=== PATIENT | female | born 1990 | race Caucasian/White ===

== ENCOUNTER 2023-05-30 08:59 | Emergency (ER) | payer BC, SELFPAY ==
[2023-05-30 09:04] VITALS: BP 109/70; PULSE 104; RESP 17; TEMP 36.6; O2SAT 98; BMI 22.3
--- NOTE | 2023-05-30 09:17 | ED.GENADULT ---
HPI - General Adult General Chief complaint: Wound/Laceration Stated complaint: Forehead lac Time Seen by Provider: 05/30/23 09:15 Source: patient Mode of arrival: ambulatory Limitations: no limitations History of Present Illness HPI narrative: Patient is a 32-year-old female presenting to the emergency department with complaint of laceration to left eyebrow after a slip and fall this morning. Patient states that she slipped on ice this morning and hit her eyebrow on ice at the time of the fall. She denies loss of consciousness. She has not anticoagulated. She denies current headache. Denies blurred vision, double vision or other visual changes. Does report mild nausea but denies vomiting. Denies any neck or back pain. Denies any other injuries. States that her Tdap is up-to-date, last received in 2020. complaint: Laceration Onset (ago): hour(s) Location: face Radiation: non-radiation Severity: mild Quality: burning Pain Consistency: constant Associated symptoms: denies other symptoms Treatments prior to arrival: none Related Data Allergies Allergy/AdvReac Type Severity Reaction Status Date / Time No Known Allergies Allergy Verified 05/30/23 09:03 Review of Systems Review of Systems: As per HPI. Yes all other systems are reviewed and are negative Constitutional: Constitutional: Reports as per HPI PMF Past Medical History Onset Date is defined in the Problem List Problems that require an onset date and time if occurred within 24 hrs of arrival to the ED Aortic Dissection and Rupture; Neurologic impairment; Cardiopulmonary Arrest; Endotracheal Intubation; Insertion or Replacement of Mechanical Circulatory Assist Device Medical History (Updated 05/30/23 @ 10:54 by Magaly Aguilar NP) No known health problems Social History Social History Smoked in Last 30 Days: No Use of substances other than those prescribed or required for medical reasons: No Advance Directives: No Physical Exam ED Vital Signs: Vital Signs - 24 hr 05/30/23 09:04 Temperature 98 F Pulse Rate 104 H Respiratory Rate 17 Blood Pressure 109/70 Pulse Oximetry 98 Oxygen Delivery Method Room Air BMI result Body Mass Index 22.3 Vital signs have been reviewed and appear to be correct. Blood pressure normal. Heart rate mildly tachycardic. Respiratory rate normal. Temperature normal. Oxygen saturation normal. Const General: cooperative, healthy appearing and no acute distress Orientation/consciousness: oriented to person, oriented to place, oriented to time and patient oriented x3 Limitations: no limitations HENMT Head: Yes normocephalic Head images: 1. laceration Ears: external ears normal General nose exam: Normal external nose present Face and sinus: Yes face symmetric Mouth: oropharynx normal and moist mucous membranes Throat: Yes uvula midline Eyes Eyelids: Yes eyelids normal Conjunctivae: conjunctivae normal Sclerae: sclerae normal Corneas: corneas normal Pupils: Equal, round and reactive pupils present EOM: EOMs intact bilaterally Neck Neck: Yes normal visual inspection and Yes supple Resp Effort & Inspection: normal respiratory effort and able to speak in complete sentences Auscultation: clear to auscultation bilaterally Cardio Rate: regular rate Rhythm: regular rhythm Heart sounds: S1 normal heart sound present and S2 normal heart sound present GI Palpation (GI): Soft to palpation and nontender Auscultation: normoactive bowel sounds General: Yes no CVA tenderness Back/Spine/Pelvis Back: no CVA tenderness Skin General skin exam: elasticity normal and turgor normal Neuro General: oriented to person, oriented to place, oriented to time, patient oriented x3, moves all extremities, no focal motor deficits and CN's II-XI intact bilaterally Cranial nerves: Yes Equal, round and reactive pupils present Cognition (Neuro): normal cognition Extrem General: Yes full ROM, Yes no pedal edema and Yes no calf tenderness Psych Mental Status: mental status grossly normal Affect: normal affect Thought process: Normal thought process present Medications Administered Discontinued Medications Generic Name Dose Route Start Last Admin Trade Name Marlonq PRN Reason Stop Dose Admin Lidocaine HCl 5 ml 05/30/23 09:25 05/30/23 10:02 Lidocaine Hcl 1 % Mpf 5 Ml Vial INFILTRATI 05/30/23 09:26 5 ml ONCE ONE Administration Ondansetron HCl 4 mg 05/30/23 09:54 05/30/23 10:01 Ondansetron Odt 4 Mg Tab.Rapdis TRANSLINGU 05/30/23 09:55 4 mg ONCE ONE Administration Procedures Laceration Laceration 1: Site: face Side (If applicable): left Size (cm): 3 Description: linear Depth: simple, single layer Local Anesthetic: lidocaine 1% Amount of anesthesia used (mL): 4 Pre-repair: wound explored, irrigated extensively and deep structures intact Skin layer closed with: other (prolene) Size (cm): 6-0 Number of sutures: 11 Technique: simple, interrupted Medical Decision Making Medical Decision Making MDM Narrative: Patient is a 32-year-old female presenting to the emergency department with complaint of laceration to left eyebrow after a slip and fall this morning. On exam patient is awake, A+Ox3, VS WNL, afebrile, normal neurological exam without focal deficits, physical exam findings as above. Given reported symptoms and physical exam findings, initial differential includes laceration, abrasion. CT head not indicated based on [place] CT head rule. Laceration repaired as per procedure note. Patient tolerated procedure well. Discussed suture care with patient at bedside as well as return precautions. Instructed patient to follow-up with PCP. Patient verbalized understanding of and agreement with plan. Differential Diagnosis Differential Diagnoses: The differential diagnosis associated with the presentation includes As Per MDM. External Record Review External record reviewed: Inpatient record, Office record and Outpatient record Discharge Plan Discharge Clinical Impression: Eyebrow laceration Qualifiers: Encounter type: initial encounter Laterality: left Qualified Code(s): S01.112A - Laceration without foreign body of left eyelid and periocular area, initial encounter Patient Disposition: Home, Self-Care Instructions: Facial Laceration (ED) Additional Instructions: You have been evaluated in the emergency department today for a laceration to your eyebrow. Your laceration was repaired in the emergency department with sutures. Please keep the area surrounding the laceration clean and dry and keep dressing in place for the next 24 hours. After that please change the dressing and assess the wound daily. Keep the area out of direct sunlight for the next 6 months to help prevent scarring. Once the area has fully healed and sutures have been removed, apply sunscreen to the area when outdoors. You should have the sutures removed in 5 days. If you develop fever, redness, swelling at the site of your laceration, or thick yellow drainage please come back to the ER for a wound check. Stand Alone Forms: Work/School Release
[2023-05-30] MEDS: Ondansetron ODT 4 MG TAB.RAPDIS TRANSLINGU (10:01)
[2023-05-30] MEDS: Lidocaine HCl 1 % MPF 5 ML VIAL INFILTRATI (10:02)
[2023-05-30 11:00] VITALS: BP 105/61; PULSE 73; RESP 16; TEMP 36.8; O2SAT 97
== END 2023-05-30 11:11 | disposition home or self-care (01) ==
PROVIDERS: Emergency Provider Emergency Medicine
DX: S01.112A Laceration without foreign body of left eyelid and periocular area, initial encounter (principal); W00.0XXA Fall on same level due to ice and snow, initial encounter; Y93.01 Activity, walking, marching and hiking; Y92.480 Sidewalk as the place of occurrence of the external cause; Y99.9 Unspecified external cause status
CPT/HCPCS: 12013; 99284

== ENCOUNTER 2023-06-04 08:21 | Emergency (ER) | payer BC, SELFPAY ==
--- NOTE | 2023-06-04 08:22 | ED_ITS ---
HPI - General Adult General Chief complaint: Wound/Laceration Stated complaint: stiches removal Time Seen by Provider: 06/04/23 08:22 Source: patient Mode of arrival: ambulatory Limitations: no limitations History of Present Illness HPI narrative: 32-year-old female presents for suture removal, she has a laceration that is healing to her left eyebrow she had sutures placed on 05/30/2023 was told to come in today to get them removed. No complaints. Related Data Allergies Allergy/AdvReac Type Severity Reaction Status Date / Time No Known Allergies Allergy Verified 05/30/23 09:03 Review of Systems Review of Systems: Yes all other systems are reviewed and are negative [facility] Past Medical History Attestation statement: The following information was validated with the patient. Source: old records reviewed and nursing notes reviewed Medical History (Updated 06/04/23 @ 08:23 by ROSCOE Chavez) No known health problems Social History Social History Advance Directives: No Advance Directives Information Provided: No Physical Exam ED Vital Signs: Vital Signs - 24 hr 06/04/23 08:28 Temperature 98 F Pulse Rate 84 Respiratory Rate 16 Blood Pressure 104/52 L Pulse Oximetry 99 Oxygen Delivery Method Room Air BMI result Body Mass Index 22.3 Appearance: Alert.? Oriented X3.? No acute distress.? Head: Normocephalic, atraumatic, no step-offs or deformities Eyes: Pupils equal, round and reactive to light.? Extraocular movements intact and pain-free. + nicely healing left eyebrow laceration with overlying suture X 11 Neck: Normal inspection.? Neck supple.? CVS Pulses normal.? Respiratory: No respiratory distress. Skin: Skin warm and dry.? Normal skin color.? Normal skin turgor.? Extremities: No lower extremity edema.? No calf ttp. 5/5 strength to bilateral upper and lower extremities Neuro: Oriented X 3.? No motor deficit.? No sensory deficit. CN 2-12 intact Medical Decision Making Medical Decision Making MDM Narrative: 32-year-old female presents for suture removal. No medical complaints. On exam there is a nicely healing left eyebrow laceration with overlying suture X 11 Likely simple suture removal. No signs of infection. Plan at this time suture removal. Educated patient on diagnosis and treatment plan, answered all question, patient verbalizes understanding. At this time patient will be discharged home, advised to return with new or worsening symptoms. Educated on worrisome signs and symptoms and when to return. At this time I feel comfortable discharge home. Differential Diagnosis Differential Diagnoses: The differential diagnosis associated with the presentation includes Likely simple suture removal. No signs of infection. Admission/Observation Consideration of admission/observation: Escalation of care including admission/observation considered No indication Discharge Plan Discharge Clinical Impression: Visit for suture removal Patient Disposition: Home, Self-Care Instructions: Stitches Removal (ED) Additional Instructions: Take your medications as prescribed. If you were prescribed antibiotics today, it is important that you take your medication to their entirety, do not skip any doses, do not finish them early. Follow-up with your primary care provider this week. Return to the emergency department with new or worsening symptoms. Such as fevers, chills, chest pain, shortness of breath, nausea, vomiting, dizziness, headache, vision changes, lethargy In case of emergency call 911 Referrals: Physician,Lamin Rios [Primary Care Provider] - 2 days Interventions: ED Discharge Assessment Last Done: 06/04/23 08:42 Discharge Date/Time: 06/04/23 08:43
[2023-06-04 08:28] VITALS: BP 104/52; PULSE 84; RESP 16; TEMP 36.6; O2SAT 99; BMI 22.3
== END 2023-06-04 08:43 | disposition home or self-care (01) ==
PROVIDERS: Emergency Provider Emergency Medicine
DX: Z48.02 Encounter for removal of sutures (principal); S01.112D Laceration without foreign body of left eyelid and periocular area, subsequent encounter; X58.XXXD Exposure to other specified factors, subsequent encounter
CPT/HCPCS: 99282